=== PATIENT | male | born 1985 | race Caucasian/White ===

== ENCOUNTER 2016-12-02 17:35 | Emergency (ER) | payer OTHER ==
[~2016-12-02] VITALS: Ht 185.4 cm; Wt 167.4 kg
[2016-12-02 17:41] VITALS: TEMP 36.8; Ht 185.4 cm; Wt 167.4 kg
[2016-12-02] MEDS ORDERED: FLUT0.15 NAE (17:56)
[2016-12-02] MEDS ORDERED: CHOL1000 PO (17:56)
[2016-12-02] MEDS ORDERED: CYAN10005 PO (17:56)
[2016-12-02] MEDS ORDERED: FURO-85 PO (17:56)
[2016-12-02] MEDS ORDERED: OMEP20TA PO (17:56)
[2016-12-02] MEDS ORDERED: ZIPR20CA PO (17:56)
[2016-12-02] MEDS ORDERED: BUPR75TA20 PO (17:56)
[2016-12-02] MEDS ORDERED: ALPR-411 PO (17:56)
--- NOTE | 2016-12-02 18:12 | DIAGNOSTIC IMAGING REPORT ---
RIGHT WRIST MIN 3 VIEWS ROUTINE CLINICAL HISTORY: Right wrist pain. Trauma. COMPARISON: None. DISCUSSION: No fractures or dislocations are visualized on conventional radiographic imaging. There are no erosive or destructive changes. IMPRESSION: No fractures are visualized. Electronically signed by: Hugh Sandy M.D. 12/02/2016 6:10 PM Dictated Date/Time: 12/02/2016 6:09 PM
--- NOTE | 2016-12-02 18:29 | EMERGENCY ROOM VISIT NOTE ---
ED Visit Note First contact with patient: 17:42 CHIEF COMPLAINT: Wrist injury HISTORY OF PRESENT ILLNESS: This 31-year-old male patient presents to the emergency department ambulatory complaining of pain in the right wrist. The patient states that he injured the wrist by punching a door approximately 1.5 months ago. He was seen at the [facility] emergency Department at that time and had negative x-rays. The patient states that he has had persistent pain with certain movements of the wrist since then. He has not followed up with orthopedics or his primary care provider regarding this pain. He does have full range of motion of the wrist but states it is painful. He rates the discomfort a 2-3/10. He states he feels that the wrist is weak compared to the other wrist. No numbness or tingling. No difficulty moving the fingers. He is not taking anything for pain. He denies any previous issues with the wrist. The patient states that he is here because he would like a second opinion regarding his wrist pain. REVIEW OF SYSTEMS: A 6 system review of systems was performed with positives and pertinent negatives in the HPI. ALLERGIES: No known drug allergies MEDICATIONS: See med list PMH: Hypertension, cholecystectomy SOCIAL HISTORY: The patient lives locally with family. He is tobacco. He denies alcohol use. PHYSICAL EXAM: Vital Signs: Reviewed Nurse's notes, vital signs stable. GENERAL : This is a 31-year-old male, in no acute distress, but appears to be in pain, well-developed, well-nourished. NEURO: Alert and oriented to person place and time. Normal sensation to light and sharp touch. MUSCULOSKELETAL: There is no deformity of the right wrist. There is no significant tenderness to palpation. Full range of motion of the wrist. Patient reports wrist pain with extension of the wrist. Batchmaker strength 5/5. Radial pulse 2+. SKIN: Normal and intact. The hand is warm and well perfused with capillary refill less than 2 seconds. RADIOGRAPHIC FINDINGS: RIGHT WRIST MIN 3 VIEWS ROUTINE CLINICAL HISTORY: Right wrist pain. Trauma. COMPARISON: None. DISCUSSION: No fractures or dislocations are visualized on conventional radiographic imaging. There are no erosive or destructive changes. IMPRESSION: No fractures are visualized. EMERGENCY DEPARTMENT COURSE: I examined the patient. An X-ray of the right wrist was reviewed by myself and radiology and showed no acute findings. I feel the patient likely has a wrist tendinitis. He was placed in a wrist lacer brace. He was instructed to take naproxen at home and follow-up with orthopedics for further evaluation of his wrist pain. The patient verbalized understanding of my assessment and treatment plan and was discharged home in good condition. DIAGNOSIS: Right wrist tendinitis Current/Historical Medications Scheduled Bupropion (Wellbutrin), 75 MG PO DAILY Cholecalciferol (Vitamin D3), 1 TAB PO DAILY Cyanocobalamin (Vitamin B-12), 1,000 MCG PO DAILY Fluticasone Propionate (Nasal) (Flonase Allergy Relief), 1 SPRAY HOA DAILY Omeprazole (Omeprazole), 1 TAB PO DAILY Ziprasidone Hcl (Geodon), 20 MG PO BID Scheduled PRN Alprazolam (Xanax), 1 MG PO Q6H PRN for Anxiety Miscellaneous Medications Furosemide (Lasix), 20 MG PO Allergies Coded Allergies: No Known Allergies (Unverified , 12/02/16) Vital Signs Date Time Temp Pulse Resp B/P Pulse Ox O2 Delivery O2 Flow Rate FiO2 12/02/16 17:41 36.8 81 20 146/88 97 Room Air Departure Information Impression Primary Impression: Right wrist tendinitis Dispostion Home / Self-Care Condition GOOD Referrals Sierra Dumont D.O. (PCP) Lino Sullivan M.D. Patient Instructions My [facility] Additional Instructions You have been treated in the Emergency Department for Wrist Pain. Wear the brace as needed for pain. For pain control, you can use the following [id number] medicines (if >12 yo): - Regular strength (325mg/tab) Tylenol (acetaminophen) 2 tabs every 4-6 hours as needed. Do not exceed 12 tablets in a 24 hour period. Avoid taking more than 4 grams (4000 mg) of Tylenol per day. This includes any other sources of acetaminophen you may take on a regular basis. Begin taking Aleve, [id number] twice daily for pain. If this is a recent injury (<24 hrs), ice can be applied to the area of pain for the first 3 days to help decrease pain and inflammation. You have been provided the number for an Orthopaedic Surgeon. You should call this number as soon as possible to establish a follow-up visit from today's Emergency Department visit. Return to the Emergency Department if your current symptoms worsen despite treatment course outlined above, or if you develop any of the following symptoms : intractable pain despite aforementioned treatment course or new onset of numbness or tingling of the fingers.
[2016-12-02 18:44] VITALS: BP 138/78; PULSE 77; O2SAT 98
== END 2016-12-02 18:45 | disposition home or self-care (01) ==
LOC: C.EDB 17:37 → C.EDD 18:45
DX: M77.8 Other enthesopathies, not elsewhere classified (principal); I10 Essential (primary) hypertension; Z90.49 Acquired absence of other specified parts of digestive tract; Z79.899 Other long term (current) drug therapy

== ENCOUNTER 2017-08-15 15:22 | Emergency (ER) | payer OTHER ==
[~2017-08-15] VITALS: Ht 185.4 cm; Wt 175.5 kg
[~2017-08-15 15:22] MED LIST: ALPR-411 PO; BUPR75TA20 PO; FURO-85 PO; ZIPR20CA PO
[2017-08-15 15:27] VITALS: TEMP 36.3; Ht 185.4 cm; Wt 175.5 kg
--- NOTE | 2017-08-15 16:08 | EMERGENCY ROOM VISIT NOTE ---
ED Visit Note First contact with patient: 15:32 CHIEF COMPLAINT: "I think I have a pinched nerve in my back" HISTORY OF PRESENT ILLNESS: This 32-year-old male patient presents to the emergency department ambulatory, with his girlfriend, complaining of pain in the low back which began 3-4 days ago. The patient states he was kneeling over , then turned and somehow twisted incorrectly. He states the pain immediately started after this injury. He states he does have a history of sciatica on the left side which does cause dull pain in the left buttock, however normally has sciatica pain radiates down the leg. The patient states there is been no radiation down the leg this episode. He states earlier today, he felt like both of his legs were slightly weak, however he did not lose his balance, did not fall, and has no loss of his bowel or bladder function. The weakness has improved since the one short episode earlier today. The patient was seen at [place] emergency Department 2 days ago, and his girlfriend is very concerned because no labs or urine testing was performed at that time. She states "I am in kidney failure, and you need to check his kidneys because you can get pain all over your back." He was given a steroid injection at [facility] and did have a lumbar spine x-ray performed. The patient did contact his PCP, but states the PCP was out of the office due to the flu, so they were unable to see any 6 visits. The patient and his girlfriend state they are unhappy with their care with a PCP, so are looking for a new PCP. The patient denies any pain while sitting still or standing, but states the pain worsens with bending or hunching over. The patient's girlfriend states she feels that the patient's low back is swollen, but when she attempted to show me the swelling, she initially began pointing to the right side. She then corrected herself after the patient told her that the pain is on the left. She still states that though she feels both sides looks similar, she feels that it is swollen. The patient notes the pain as sharp, "like my nerve is ready to break in half" only during position changes, and a 10/10. The patient has taken occasional Advil without relief of the pain. The patient denies any loss of control of their bowel or bladder functions. There has been no leg numbness or weakness, and no change in sensation. No nausea or vomiting or abdominal pain. No chest pain or shortness of breath. The patient has seen a back surgeon while in [place] , and states he was diagnosed with degenerative disc disease. He states his L2 through L4 discs are deteriorating, and surgery was recommended at that time, however the surgeon did not feel comfortable performing the surgery due to the patient's obesity. The patient has not seen a local back surgeon. No dysuria or increased urinary frequency. REVIEW OF SYSTEMS: A 10 system review of systems was performed with positives and pertinent negatives listed in the history of present illness. All other systems were reviewed and are negative. ALLERGIES: None MEDICATIONS: Flonase, Lasix, omeprazole, Wellbutrin, vitamin D, vitamin B12, Zoloft, Lamictal, probiotic PMH: Obesity, GERD, mood disorder, varicose veins SOCIAL HISTORY: The patient lives locally with his girlfriend. He denies drug, alcohol, tobacco use. PHYSICAL EXAM: VITALS: Vitals are noted on the nurse's note and reviewed by myself. Vital signs stable. GENERAL: This is a 32-year-old obese white male, in no acute distress, nondiaphoretic, well-developed well-nourished. SKIN: The skin was without rashes, erythema, edema, or bruising. Capillary refill less than 2 seconds. NECK: Supple without nuchal rigidity. No cervical spine tenderness. No paraspinous muscle tenderness. HEART: Regular rate and rhythm without murmurs gallops or rubs. LUNGS: Clear to auscultation bilaterally without wheezes, rales or rhonchi. ABDOMEN: Positive bowel sounds x 4. Normal tympanic percussion. Soft, nontender, without masses or organomegaly. Elena sign negative. No CVA tenderness. MUSCULOSKELETAL: No muscle atrophy, erythema, or edema noted of the back. The area of the back that the patient's girlfriend points out as swollen appears the same bilaterally. No pitting edema noted. This does not appear swollen to me. There is no tenderness over the lumbar spinous processes. There is mild tenderness over the paraspinous muscles on the left. There is tenderness in the SI joint. There is no tenderness over the thoracic spine or paraspinous muscles. There are no muscle spasms present. The patient is slow to move around with maximum tenderness with position changes - lying or standing from a sitting position. Negative straight leg raise test bilaterally. NEURO: Patient was alert and oriented to person place and time. Normal sensation to light and sharp touch. Deep tendon reflexes 2+ in the lower extremities. Dorsalis pedis pulse 2+ bilaterally. Strength 5/5 and equal in the bilateral lower extremities. EMERGENCY DEPARTMENT COURSE: The patient was seen and evaluated as above. I did review his x-ray report from [facility], which did show some mild spondylosis with mild spinal osteoarthropathy. Based on the patient and his girlfriend's concerns, a urinalysis was performed. This did not reveal any blood or signs of an infection. The patient has not recently been ill, does not have a fever, so I do not feel that labs are warranted at this time. He has no numbness or tingling of his lower extremities, has not had any significant weakness, has not fallen, and has not had any bowel or bladder dysfunction. I do not feel that the patient needs an emergent MRI at this time based on the symptoms he is experiencing and the workup which has previously been done. I discussed this with the patient and his girlfriend at bedside. The patient's girlfriend states she does not understand why we will not perform the MRI here now, she feels that the patient needs it. I advised her that I agreed that the patient may need an MRI outpatient, but discussed with her the reasons for performing MRI in the emergency department, and advised her that the patient does not meet those criteria. The patient's girlfriend states "so we drove all the way up here for nothing." I did advise her that I am caring for the patient and will give him the treatment which is warranted at this time based on his symptoms. The patient was in agreement with following up outpatient with his or a new PCP and/or orthopedic spine surgeon. I discussed treatment options with the patient at bedside, and advised him that anti-inflammatories are the mainstay of treatment for lumbar strains with sciatica. I offered the patient steroids versus NSAIDs. The patient states NSAIDs worsen his GERD. The patient's girlfriend immediately states that steroids will make the patient gain weight. I did advise the patient that it is possible that he may have an increased appetite and gain some weight, but I did advise him that not every patient gets that symptom. The patient's girlfriend states that she has been on steroids before and has gotten that symptom, so she feels that the patient will also get that symptom. I encouraged the patient to monitor his eating habits and be mindful that he he may feel more hungry over the next week and not to overeat. Again, I did offer NSAIDs as opposed to steroids, but the patient states he prefers the steroids at this time. The patient's girlfriend then states that she does not understand why I would prescribe steroids, as the steroids did not help when they were given in the emergency department on Tuesday. I discussed with her that often, a longer course of steroids and rest will help to decrease the inflammation in the muscles which could be putting pressure on the nerves and causing the patient's symptoms. At this time, the patient's girlfriend crosses her arms and states "I've said all I've needed to say." I did also offer to switch the patient from Flexeril to baclofen in attempts to help with spasms and pain. I advised the patient that one muscle relaxer does not always work in every patient and that sometimes a different one will work better. I reviewed all discharge instructions, and asked the patient if he had any other questions. States he does not. I did specifically ask the patient's girlfriend if she had any other questions for me or concerns, and she states "I don't have anything else to say." I encouraged the patient to follow up outpatient, and provided him with symptoms for which to return. The patient was discharged home in good condition. I did realize after the patient had left that I forgot to put Dr. Sanches's information in his discharge instructions. I did personally call the patient and left a message on his voicemail with Dr. Sanches's address and phone number and encouraged him to contact the office to schedule an appointment. I attest that I have personally reviewed the patient's current medication list. Blood Pressure Screening: Patient was found to have a slightly elevated blood pressure due to circumstances. I do not believe that the patient requires hypertension monitoring. The patient was independently seen and evaluated by Dr. Berrios, who was in agreement with the assessment and plan. DIFFERENTIAL DIAGNOSIS: Sprain, strain, sciatica, radiculopathy, UTI, nephrolithiasis, ureteral calculus, abscess, infection, Cauda Equina syndrome, malignancy, and others. DIAGNOSIS: Lumbar strain with sciatica Current/Historical Medications Scheduled Bupropion (Wellbutrin Sr), 100 MG PO DAILY Cholecalciferol (Vitamin D3), 1 TAB PO DAILY Cyanocobalamin (Vitamin B-12), 1,000 MCG PO DAILY Fluticasone Propionate (Nasal) (Flonase Allergy Relief), 1 SPRAY HOA DAILY Furosemide (Lasix), 40 MG PO DAILY Lamotrigine (Lamictal), 25 MG PO HS Methylprednisolone (Medrol Dosepak), 0 PO DAILY Omeprazole (Omeprazole), 1 TAB PO DAILY Potassium Ext Rel (Klor-Con), 20 MEQ PO DAILY Sertraline (Zoloft), 50 MG PO DAILY Scheduled PRN Baclofen (Lioresal), 10 MG PO TID PRN for Muscle Spasms Allergies Coded Allergies: No Known Allergies (Unverified , 12/02/16) Vital Signs Date Time Temp Pulse Resp B/P (MAP) Pulse Ox O2 Delivery O2 Flow Rate FiO2 08/15/17 16:50 88 20 155/80 99 08/15/17 15:27 36.3 80 18 148/103 99 Room Air Departure Information Impression Primary Impression: Strain of lumbar region Dispostion Home / Self-Care Condition GOOD Prescriptions Baclofen (LIORESAL) 10 Mg Tab 10 MG PO TID Y for Muscle Spasms, #15 TAB Prov: Codie Tatum PA-C 08/15/17 Methylprednisolone (MEDROL DOSEPAK) 4 Mg Kervin 0 PO DAILY, #1 PKT Prov: Codie Tatum PA-C 08/15/17 Referrals No Doctor, Assigned (PCP) Patient Instructions ED Sciatica, Exercises Back Partial Curl Ups, My [facility] Additional Instructions You have been treated in the Emergency Department for Back Pain. You have been prescribed a Medrol Dosepak. This is a steroid which will help decrease your inflammation, redness, and itch. Take the medicine as prescribed. Take the ENTIRE 6 day course of the steroids. You have been prescribed Baclofen 1 tabs orally, three times per day as needed for muscle spasms. Do NOT exceed 30 mg (3 tabs) per day. Take your first dose at bedtime as it can make you drowsy. Always take all medications as prescribed. Take this IN PLACE OF Flexeril. For pain control, you can use the following [id number] medicines (if >12 yo): Ibuprofen(Motrin, Advil) may be used for fever or pain. Use 600mg every six hours as needed. Take with food. Avoid using more than 2400mg in a 24 hour period. Do not use 2400mg per day for more than three consecutive days without physician direction. Prolonged inappropriate use can lead to stomach upset or ulcers. Do not use this medication while taking steroids. (AND/OR) Acetaminophen(Tylenol) may be used for fever or pain. Use 1000mg every six hours as needed. Avoid using more than 3000mg in a 24 hour period. If this is an acute injury, ice can be applied to the area of pain for the first 3 days to help decrease pain and inflammation. After the first 3 days, a heating pad can be used over the area for continued soothing relief. You should schedule a follow-up appointment in 2-3 days with your Primary Care Provider for further evaluation and treatment of your back pain. Return to the Emergency Department if your current symptoms worsen despite treatment course outlined above, or if you develop any of the following symptoms : intractable pain despite aforementioned treatment course, loss of control of your bowel or bladder, numbness or tingling in your groin, or development of a fever. Problem Qualifiers Primary Impression: Strain of lumbar region Encounter type: initial encounter Qualified Codes: S39.012A - Strain of muscle, fascia and tendon of lower back, initial encounter
[2017-08-15] MEDS ORDERED: BACL1TAB PO (16:27)
[2017-08-15] MEDS ORDERED: METH4PAK PO (16:27)
--- NOTE | 2017-08-15 16:31 | EMERGENCY ROOM VISIT NOTE ---
ED Visit Note First contact with patient: 15:32 Staff note: I have reviewed the Patients chart and have discussed this case with my PA. I generally agree with the ED note and findings.
[2017-08-15 16:50] VITALS: BP 155/80; PULSE 88; O2SAT 99
[2017-08-15] MEDS ORDERED: LAMO25TA PO (17:02)
[2017-08-15] MEDS ORDERED: FRS/40 PO (17:02)
[2017-08-15] MEDS ORDERED: SERT50TA PO (17:02)
[2017-08-15] MEDS ORDERED: POTA20TA16 PO (17:02)
[2017-08-15] MEDS ORDERED: BUPR100T8 PO (17:02)
[2017-08-15] MEDS ORDERED: OMEP20TA PO (17:56)
[2017-08-15] MEDS ORDERED: CYAN10005 PO (17:56)
[2017-08-15] MEDS ORDERED: CHOL1000 PO (17:56)
[2017-08-15] MEDS ORDERED: FLUT0.15 NAE (17:56)
== END 2017-08-15 16:56 | disposition home or self-care (01) ==
LOC: C.EDB 15:24 → C.EDD 16:56
DX: S39.012A Strain of muscle, fascia and tendon of lower back, initial encounter (principal); X58.XXXA Exposure to other specified factors, initial encounter; K21.9 Gastro-esophageal reflux disease without esophagitis; E66.9 Obesity, unspecified; Z79.899 Other long term (current) drug therapy